=== PATIENT | female | born 1935 | race Caucasian/White ===

== ENCOUNTER → 2018-03-30 | Outpatient (CLI) | payer MEDICARE | LOC: MAMMO 03-29 08:30 | DX: Z12.31 Encounter for screening mammogram for malignant neoplasm of breast (principal) ==

== ENCOUNTER 2019-11-04 18:08 | Observation (INO) | payer MEDICARE, BC ==
[~2019-11-04] VITALS: Ht 167.6 cm; Wt 93.6 kg
[2019-11-04] MEDS ORDERED: TRAMADOL 50 MG TAB PO (18:20)
[2019-11-04] MEDS ORDERED: CLARITIN 1010 MG/TAB PO (18:21)
[2019-11-04] MEDS ORDERED: PREGABALIN75 MG PO (18:22)
[2019-11-04] MEDS ORDERED: CRANBERRY500 M3 PO (18:22)
[2019-11-04] MEDS ORDERED: ONCE DAILY1 TA1 PO (18:22)
[2019-11-04] MEDS ORDERED: LOSARTAN POTASS25 MG PO (18:23)
[2019-11-04] MEDS ORDERED: LEVOTHYROXINE0.05 MG PO (18:23)
[2019-11-04] MEDS ORDERED: NATURAL LUTEIN20 MG PO (18:24)
[2019-11-04] MEDS ORDERED: SIMVASTATIN20 M1 PO (18:24)
[2019-11-04] MEDS ORDERED: NORCO 325 MG-7.1 TA1 PO (18:24)
[2019-11-04] MEDS ORDERED: NATURE'S BLEND400 IU PO (18:25)
[2019-11-04] MEDS ORDERED: VITAMIN D35000 UNIT PO (18:25)
[2019-11-04] MEDS ORDERED: MAGNESIUM400 MG PO (18:26)
[2019-11-04] MEDS ORDERED: MELOXICAM7.5 MG PO (18:26)
[2019-11-04] MEDS ORDERED: LANTUS SOLOS100 U/ML SQ (18:26)
[2019-11-04] MEDS ORDERED: INSULIN AS100 UNIT/3 SQ (18:26)
[2019-11-04 18:47] LABS: HEMOGLOBIN 13.5 g/dL (12.5-16.0); MEAN CELL VOLUME 89 fl (78-100); MEAN CORPUSCULAR HEMOGLOBIN 29 pg (27-31); MEAN CORPUSCULAR HGB CONC 32 g/dL (33-37); PLATELET COUNT 202 K/mm3 (130-400); RED BLOOD COUNT 4.73 M/mm3 (4.10-5.30); WHITE BLOOD COUNT 10.6 K/mm3 (4.8-10.8)
[2019-11-04 18:56] LABS: ALBUMIN 3.3 g/dL (3.4-4.8)
[2019-11-04 18:57] LABS: POTASSIUM 3.9 mmol/L (3.5-5.1)
[2019-11-04 18:58] LABS: CALCIUM 8.4 mg/dL (8.3-10.5)
[2019-11-04 18:59] LABS: TOTAL PROTEIN 6.1 g/dL (6.2-8.1)
[2019-11-04 19:01] LABS: TOTAL BILIRUBIN 0.4 mg/dL (0.2-1.2)
[2019-11-04 19:10] LABS: LYMPHOCYTE 8 % (20-51); MONOCYTE 7 % (3-10); NEUTROPHILS 85 % (42-75)
--- NOTE | 2019-11-04 21:35 | NUR ---
Pt to room 203 per w/c from ER for observation status. IV fluids of NS running at 83 mls/hr in progress. Pt given assistance with shower once arrives to the unit. A/0 x 4. States nausea is a little less.
[2019-11-04 21:59] VITALS: BP 150/68
[2019-11-04 22:00] VITALS: BP 150/68
--- NOTE | 2019-11-04 23:20 | NUR ---
Pt requests something further for nausea. RYAN Brown aware and order for phenergan received. Pt has ice chips at this bedside at this time. UA and stool sample still needed.
--- NOTE | 2019-11-05 | NUR ---
Patient resting in bed with HOB 35 degrees. Left AC IV intact, flushes, with blood return noted. NS at 83cc/hr cont. Patient appropriate with verbal responces. Patient received IV phenergan prior to this RN assuming care for nausea. Patient reports this has improved but continues with loose stools. Patient upper extremities are noted to have random uncontrollable movements, patient reports this happens at home as well. Yamila Chacon APRN notified.
[2019-11-05 02:22] VITALS: BP 106/69
--- NOTE | 2019-11-05 05:47 | NUR ---
UA OBTAINED PER STRIGHT CATH. CLEAR YELLOW URINE NOTED AT TIME OF STRIGHT CAHT.
[2019-11-05 05:54] VITALS: BP 99/57
[2019-11-05 06:55] LABS: URINE APPEARANCE CLEAR; URINE BILIRUBIN NEGATIVE (NEGATIVE); URINE BLOOD NEGATIVE (NEGATIVE); URINE COLOR YELLOW; URINE GLUCOSE NEGATIVE (NEGATIVE); URINE KETONE NEGATIVE (NEGATIVE); URINE LEUKOCYTE ESTERASE NEGATIVE (NEGATIVE); URINE MUCUS PRESENT (NOT PRESENT); URINE NITRATE NEGATIVE (NEGATIVE); URINE PROTEIN(semi-quant) TRACE mg/dL (NEGATIVE); URINE UROBILINOGEN NORMAL (NORMAL); URINE WBC 0 /hpf (0-3)
[2019-11-05 07:01] LABS: HEMATOCRIT 38.1 % (37.0-47.0); HEMOGLOBIN 12.1 g/dL (12.5-16.0); MEAN CELL VOLUME 90 fl (78-100); MEAN CORPUSCULAR HEMOGLOBIN 29 pg (27-31); MEAN CORPUSCULAR HGB CONC 32 g/dL (33-37); MEAN PLATELET VOLUME 10.8 fl (7.4-10.4); PLATELET COUNT 182 K/mm3 (130-400); RED BLOOD COUNT 4.25 M/mm3 (4.10-5.30); RED CELL DISTRIBUTION WIDTH 15.2 % (11.5-14.5); WHITE BLOOD COUNT 8.6 K/mm3 (4.8-10.8)
[2019-11-05 07:14] LABS: ALBUMIN 3.1 g/dL (3.4-4.8); POTASSIUM 3.2 mmol/L (3.5-5.1)
[2019-11-05 07:15] LABS: CALCIUM 7.9 mg/dL (8.3-10.5)
[2019-11-05 07:16] LABS: TOTAL PROTEIN 5.6 g/dL (6.2-8.1)
[2019-11-05 07:18] LABS: TOTAL BILIRUBIN 0.4 mg/dL (0.2-1.2)
[2019-11-05 07:51] LABS: LYMPHOCYTE 17 % (20-51); MONOCYTE 12 % (3-10); NEUTROPHILS 71 % (42-75)
--- NOTE | 2019-11-05 10:00 | NUR ---
The pt is noted to have a pressure injury to the medial aspect of the left heel. It appears dry and closed and appears to be healed/in the process of healing. Pain is noted when the heel is touched and the pt states "yes, I know, I have a sore there. I've had it forever." The pt is also noted to have an ulcer to the base of the right great toe. This sore appears to be the size of a dime and dry/healing. The pt also has a dime sized ulcer to the sacrum. This is red in color and closed. The pt's heels are floated and she is turned every two hours in order to prevent further development of ulcers. Montse Lion APRN is notified of these ulcers.
[2019-11-05 10:01] VITALS: BP 113/74
--- NOTE | 2019-11-05 14:00 | NUR ---
Potassium of 3.2 is reported to Montse Lion APRN. It is also reported to her that the pt has continued to have frequent liquid stools throughout the day.
[2019-11-05 14:13] VITALS: BP 119/67
[2019-11-05 18:03] VITALS: BP 133/71
--- NOTE | 2019-11-05 20:48 | NUR ---
Report given to Cee Manuel RN.
[2019-11-05 22:17] VITALS: BP 136/61
[2019-11-06 01:23] VITALS: BP 116/71
[2019-11-06 05:25] VITALS: BP 110/73
[2019-11-06 07:48] LABS: HEMATOCRIT 38.4 % (37.0-47.0); MEAN CELL VOLUME 91 fl (78-100); MEAN CORPUSCULAR HEMOGLOBIN 28 pg (27-31); MEAN CORPUSCULAR HGB CONC 31 g/dL (33-37); MEAN PLATELET VOLUME 10.9 fl (7.4-10.4); PLATELET COUNT 173 K/mm3 (130-400); RED BLOOD COUNT 4.24 M/mm3 (4.10-5.30); RED CELL DISTRIBUTION WIDTH 15.2 % (11.5-14.5); WHITE BLOOD COUNT 8.7 K/mm3 (4.8-10.8)
[2019-11-06 07:52] LABS: ALBUMIN 3.2 g/dL (3.4-4.8); POTASSIUM 3.1 mmol/L (3.5-5.1)
[2019-11-06 07:54] LABS: CALCIUM 7.8 mg/dL (8.3-10.5)
[2019-11-06 07:55] LABS: TOTAL PROTEIN 5.7 g/dL (6.2-8.1)
[2019-11-06 07:57] LABS: TOTAL BILIRUBIN 0.4 mg/dL (0.2-1.2)
[2019-11-06 08:22] LABS: LYMPHOCYTE 16 % (20-51); MONOCYTE 19 % (3-10); NEUTROPHILS 63 % (42-75)
--- NOTE | 2019-11-06 09:17 | NUR ---
UPGRADED TO BRAT DIET FOR BREAKFAST, TOLERATING TOAST AND BANANA WELL SO FAR, STAND PIVOT TO COMMODE, NO DIARRHEA THIS SHIFT SO FAR, VOIDING APPROPRIATELY, FULLY ALERT AND ORIENTED, STABLE CONDITION, NO ACUTE CHANGES, BED ALARM ON AND CALL LIGHT WITHIN REACH UPON EXITING ROOM, PT SMILING AND COOPERATIVE
[2019-11-06 10:04] VITALS: BP 133/85
[2019-11-06] MEDS ORDERED: EFFER-K20 MEQ PO (10:25)
--- NOTE | 2019-11-06 10:40 | NUR ---
INT REMOVED, DC PAPERWORK REVIEWED AND UNDERSTOOD, WILL REVIEW AGAIN WITH FAMILY, F/U APPT MADE WITH FOR NEXT WEEK, PT STABLE, AGREEABLE TO DC PLAN, GETTING DRESSED AT THIS TIME AND ASSISTED IN PACKING ALL BELONGINGS FOR HOME IN A BAG
--- NOTE | 2019-11-06 11:08 | NUR ---
PT'S SON IN LAW ARRIVES, REVIEWED ALL DC PAPERWORK AND F/U APPOINTMENTS, AGREEABLE TO DC PLAN, NO FURTHER QUESTIONS, SON IN LAW PROVIDES HOME MOTORIZED SCOOTER AND PT DC'S THE HOSPITAL IN STABLE CONDITION
== END 2019-11-06 11:13 | disposition home or self-care (01) ==
LOC: ED 18:08 → MED/SURG 21:28
PROVIDERS: ADMIT Nurse Practitioner Primary Care
DX: R11.10 Vomiting, unspecified (principal); R19.7 Diarrhea, unspecified; E86.0 Dehydration; E87.6 Hypokalemia; E11.9 Type 2 diabetes mellitus without complications; I10 Essential (primary) hypertension; J44.9 Chronic obstructive pulmonary disease, unspecified; E78.5 Hyperlipidemia, unspecified; Z79.4 Long term (current) use of insulin; Z86.73 Personal history of transient ischemic attack (TIA), and cerebral infarction without residual deficits; Z88.5 Allergy status to narcotic agent; Z88.8 Allergy status to other drugs, medicaments and biological substances; Z88.2 Allergy status to sulfonamides; Z88.1 Allergy status to other antibiotic agents; Z91.013 Allergy to seafood; Z91.041 Radiographic dye allergy status
CPT/HCPCS: C9113; G0378; J1650; J1815; J2405; J2550; J7030

== ENCOUNTER → 2020-12-22 | Outpatient (CLI) | payer MEDICARE, BC ==
[2020-07-09 19:45] VITALS: BP 173/79
[~2020-12-22] MED LIST: CALCIUM CARBON650 M2 PO; CENTRUM SPECIA1 EACH PO; CLARITIN 1010 MG/TAB PO; CRANBERRY500 M3 PO; EFFER-K20 MEQ PO; INSULIN AS100 UNIT/3 SQ; LANTUS SOLOS100 U/ML SQ; LEVOTHYROXINE0.05 MG PO; LOSARTAN POTASS25 MG PO; LYRICA 150MG C150 MG PO; MAGNESIUM400 MG PO; MELOXICAM7.5 MG PO; NATURAL LUTEIN20 MG PO; NATURE'S BLEND400 IU PO; NORCO 325 MG-51 TA1 PO; NYSTATIN15 G1 TOP; ONCE DAILY1 TA1 PO; PROAIR HFA0.09 MG/AC IH; PROBIOTIC 4X C1 EACH PO; SIMVASTATIN20 M1 PO; TRAMADOL 50 MG TAB PO; VISION FORMULA1 EAC1 PO; VITAMIN D3125 MC1 PO
== END ==
LOC: RAD 10:25
DX: S82.852A Displaced trimalleolar fracture of left lower leg, initial encounter for closed fracture (principal)